=== PATIENT | female | born 1960 | race Caucasian/White ===

== ENCOUNTER 2023-01-20 01:34 | Emergency (ER) | payer MEDICAID ==
[~2023-01-20] VITALS: Ht 160 cm; Wt 70.3 kg
[2023-01-20] MEDS ORDERED: LISI2.5T14 PO (01:55)
[2023-01-20] MEDS ORDERED: ONDANSETRON ODT 4 MG TAB.RAPDIS ONE (02:15)
[2023-01-20] MEDS ORDERED: ONDANSETRON ODT 4 MG TAB.RAPDIS SL ONE (02:15)
[2023-01-20] MEDS ORDERED: PENICILLIN G BENZATHINE 2.4 MMU/4 ML DISP.SYRIN IM ONE ×2 (02:15)
[2023-01-20] MEDS ORDERED: HYDROMORPHONE 1 MG/1 ML DISP.SYRIN IM ONE (02:15)
[2023-01-20] MEDS ORDERED: HYDROMORPHONE 1 MG/1 ML DISP.SYRIN ONE (02:15)
[2023-01-20] MEDS ORDERED: ONDA4TAB5 PO (02:22)
[2023-01-20] MEDS ORDERED: HYDR-4209 PO (02:22)
[2023-01-20 02:30] VITALS: BP 148/85; O2SAT 97
== END 2023-01-20 02:31 | disposition home or self-care (01) ==
LOC: ER 01:42
DX: K08.89 Other specified disorders of teeth and supporting structures (principal); E78.5 Hyperlipidemia, unspecified; Z79.899 Other long term (current) drug therapy
CPT/HCPCS: 99284; 96372 ×2; J0561; J1170; A4663; Q0162

== ENCOUNTER 2023-09-18 21:31 | Emergency (ER) | payer MEDICAID, OTHER ==
[~2023-09-18] VITALS: Ht 165.1 cm; Wt 73.0 kg
[~2023-09-18 21:31] MED LIST: HYDR-4209 PO; LISI2.5T14 PO; ONDA4TAB5 PO
[2023-09-18 21:38] VITALS: O2SAT 98
[2023-09-18] MEDS ORDERED: IBUPROFEN 600 MG TABLET ONE (23:09)
[2023-09-18] MEDS: IBUPROFEN 600 MG TABLET PO ONE (23:18)
[2023-09-18] MEDS ORDERED: NAPR-1009 PO (23:29)
== END 2023-09-19 00:05 | disposition home or self-care (01) ==
LOC: ER 21:35
DX: S93.491A Sprain of other ligament of right ankle, initial encounter (principal); R03.0 Elevated blood-pressure reading, without diagnosis of hypertension; E78.5 Hyperlipidemia, unspecified; Z79.899 Other long term (current) drug therapy; Z60.2 Problems related to living alone; W18.39XA Other fall on same level, initial encounter; Y93.89 Activity, other specified; Y92.89 Other specified places as the place of occurrence of the external cause; Y99.8 Other external cause status
CPT/HCPCS: 73610; A4606; A4663

== ENCOUNTER 2024-01-14 10:22 | Emergency (ER) | payer OTHER ==
[~2024-01-14] VITALS: Ht 167.6 cm; Wt 73.5 kg
[~2024-01-14 10:22] MED LIST changes: +NAPR-1009 PO
[2024-01-14 10:45] VITALS: O2SAT 98
[2024-01-14 11:09] LABS: *BILIRUBIN,URIN NEGATIVE (NEGATIVE); *BLOOD, URINE 1+ (NEGATIVE); *CLARITY,URINE CLEAR (CLEAR); *COLOR,URINE YELLOW (YELLOW); *KETONES,URINE NEGATIVE (NEGATIVE); *PROTEIN,URINE NEGATIVE (NEGATIVE); *UROBILINOGEN,URINE 0.2 E.U./dl (NORMAL); LEUKOCYTE ESTERASE ,URINE 2+ (NEGATIVE); NITRITE, URINE NEGATIVE (NEGATIVE); UGLUCOSE NEGATIVE (NEGATIVE)
[2024-01-14] MEDS ORDERED: DOXY100C5 PO (11:21)
[2024-01-14] MEDS ORDERED: PHEN-705 PO (11:21)
[2024-01-14] MEDS ORDERED: PHENAZOPYRIDINE HCL 100 MG TABLET ONE (11:28)
[2024-01-14 11:30] LABS: BACTERIA,URINE FEW /HPF (NONE SEEN); SQUAMOUS EPITHELIAL CELL,UR FEW /HPF (NONE SEEN); WBC,URINE 80-100 /HPF (0-3)
[2024-01-14] MEDS: PHENAZOPYRIDINE HCL 100 MG TABLET PO ONE ×2 (11:31)
== END 2024-01-14 11:32 | disposition home or self-care (01) ==
LOC: ER 10:22
DX: N39.0 Urinary tract infection, site not specified (principal); E78.5 Hyperlipidemia, unspecified; Z79.891 Long term (current) use of opiate analgesic; Z79.899 Other long term (current) drug therapy; Z60.2 Problems related to living alone
CPT/HCPCS: A4606; A4663

== ENCOUNTER 2024-02-18 17:57 | Emergency (ER) | payer OTHER ==
[~2024-02-18] VITALS: Ht 162.6 cm; Wt 72.6 kg
[~2024-02-18 17:57] MED LIST changes: +DOXY100C5 PO; +PHEN-705 PO
[2024-02-18] MEDS: HYDROCODONE BIT/HOMATROPINE 5 ML UDC PO ONE (20:45)
[2024-02-18 20:57] LABS: BASOPHILS % (AUTO) 0.4 % (0.0-2.0); EOSINOPHILS # (AUTO) 0.3 K/uL (0.0-0.7); EOSINOPHILS % (AUTO) 2.6 % (0.0-7.0); HEMATOCRIT 40.2 % (31.2-41.9); LYMPHOCYTES % (AUTO) 18.7 % (20.5-51.5); MEAN CORPUSCULAR HEMOGLOBIN 28.5 uug (24.7-32.8); MEAN CORPUSCULAR HGB CONC 32 g/dL (32.3-35.6); MEAN CORPUSCULAR VOLUME 87.9 fL (75.5-95.3); MONOCYTES # (AUTO) 1.1 K/uL (0.1-1.30); MONOCYTES % (AUTO) 10.3 % (0.0-11.0); NEUTROPHILS # (AUTO) 7.4 K/uL (1.8-8.9); PLATELET COUNT (AUTO) 237 K/uL (179-408); RED BLOOD CELL COUNT(AUTO) 4.57 MIL/uL (3.63-4.92); RED CELL DISTRIBUTION WIDTH 13.7 % (12.3-17.7); WHITE BLOOD COUNT (AUTO) 10.8 K/uL (3.8-11.8)
[2024-02-18 21:01] LABS: DIFFERENTIAL COMMENT 1
[2024-02-18 21:05] LABS: CALCIUM 9.1 mg/dL (8.5-10.1); CREATININE 0.9 mg/dL (0.6-1.3); POTASSIUM 3.7 mmol/L (3.5-5.1)
[2024-02-18] MEDS ORDERED: CEFTRIAXONE /D5W 50ML IVPB **ER PYXIS IV ONE (21:46)
[2024-02-18] MEDS ORDERED: AZITHROMYCIN 500MG/ D5W 250ML IVPB **ER PYXIS ONLY IV ONE (21:47)
[2024-02-18] MEDS ORDERED: HYDROCODONE BIT/HOMATROPINE 5 ML UDC ONE (21:47)
[2024-02-18] MEDS: AZITHROMYCIN IV 500 MG in IV DEXTROSE 5% 250 ML IV ONE (22:03)
[2024-02-18] MEDS: CEFTRIAXONE 1 G in IV DEXTROSE 5% 50 ML IV ONE (22:17)
[2024-02-18] MEDS ORDERED: CEFU500T66 PO (22:54)
[2024-02-18] MEDS ORDERED: HYDR473S13 PO (22:54)
[2024-02-18] MEDS ORDERED: AZIT500T4 PO (22:54)
[2024-02-18 23:27] VITALS: BP 115/65; TEMP 98.7; O2SAT 98
== END 2024-02-18 23:28 | disposition home or self-care (01) ==
LOC: ER 17:59
DX: J18.9 Pneumonia, unspecified organism (principal); E78.5 Hyperlipidemia, unspecified; Z79.899 Other long term (current) drug therapy
CPT/HCPCS: 99284; 96365; 71045; 80048; 85025; 84145; 87040; 36415; 96368; 83605; J0456; J0696; A4606; A4663

== ENCOUNTER 2024-08-10 14:42 | Emergency (ER) | payer OTHER ==
[~2024-08-10] VITALS: Ht 162.6 cm; Wt 72.6 kg
[~2024-08-10 14:42] MED LIST changes: +AZIT500T4 PO; +CEFU500T66 PO; +HYDR473S13 PO
[2024-08-10 18:58] LABS: BASOPHILS # (AUTO) 0.1 K/UL (0.0-0.2); BASOPHILS % (AUTO) 0.9 % (0.0-2.0); DIFFERENTIAL COMMENT 1; EOSINOPHILS # (AUTO) 0.2 K/uL (0.0-0.7); EOSINOPHILS % (AUTO) 2.6 % (0.0-7.0); HEMATOCRIT 41.7 % (31.2-41.9); HEMOGLOBIN 14.1 g/dL (10.9-14.3); LYMPHOCYTES # (AUTO) 1.8 K/uL (0.8-4.8); LYMPHOCYTES % (AUTO) 29.5 % (20.5-51.5); MEAN CORPUSCULAR HEMOGLOBIN 29.6 uug (24.7-32.8); MEAN CORPUSCULAR HGB CONC 34 g/dL (32.3-35.6); MEAN CORPUSCULAR VOLUME 87.9 fL (75.5-95.3); MONOCYTES # (AUTO) 0.3 K/uL (0.1-1.30); MONOCYTES % (AUTO) 5.4 % (0.0-11.0); NEUTROPHILS # (AUTO) 3.8 K/uL (1.8-8.9); NEUTROPHILS % (AUTO) 61.6 % (38.5-71.5); PLATELET COUNT (AUTO) 190 K/uL (179-408); RED BLOOD CELL COUNT(AUTO) 4.74 MIL/uL (3.63-4.92); RED CELL DISTRIBUTION WIDTH 13.5 % (12.3-17.7); WHITE BLOOD COUNT (AUTO) 6.2 K/uL (3.8-11.8)
[2024-08-10] MEDS ORDERED: CLIN-118 PO (19:17)
[2024-08-10] MEDS ORDERED: CIPR5DRO EACHEYE (19:17)
[2024-08-10 19:19] LABS: CALCIUM 9.2 mg/dL (8.5-10.1); CREATININE 0.8 mg/dL (0.6-1.3); POTASSIUM 4.2 mmol/L (3.5-5.1)
[2024-08-10 19:25] LABS: ALBUMIN 3.8 g/dL (3.4-5.0); BILIRUBIN,TOTAL 0.4 mg/dL (0.2-1.0); TOTAL PROTEIN, SERUM 7.8 g/dL (6.4-8.2)
[2024-08-10] MEDS ORDERED: CLINDAMYCIN HCL 150 MG CAPSULE ONE (19:25)
[2024-08-10 19:28] LABS: ERYTHROCYTE SEDIMENTATION RATE 2 MM/HR (0-20)
[2024-08-10] MEDS: CLINDAMYCIN HCL 150 MG CAPSULE PO ONE (19:39)
[2024-08-10 19:46] VITALS: BP 136/83
== END 2024-08-10 19:47 | disposition home or self-care (01) ==
LOC: ER 14:42
DX: H00.011 Hordeolum externum right upper eyelid (principal); E78.5 Hyperlipidemia, unspecified; I10 Essential (primary) hypertension; Z79.899 Other long term (current) drug therapy
CPT/HCPCS: 36415; 85025; 85651; A4606; A4663

== ENCOUNTER 2024-10-01 18:10 | Emergency (ER) | payer OTHER ==
[~2024-10-01] VITALS: Ht 162.6 cm; Wt 72.6 kg
[~2024-10-01 18:10] MED LIST changes: +CIPR5DRO EACHEYE; +CLIN-118 PO
[2024-10-01] MEDS ORDERED: CEPH500C2 PO (18:33)
[2024-10-01 18:55] VITALS: BP 132/72; TEMP 97.8; O2SAT 96
== END 2024-10-01 18:55 | disposition home or self-care (01) ==
LOC: ER 18:10
DX: H57.89 Other specified disorders of eye and adnexa (principal); H57.11 Ocular pain, right eye; E78.5 Hyperlipidemia, unspecified; Z79.899 Other long term (current) drug therapy
CPT/HCPCS: A4606; A4663